=== PATIENT | female | born 1975 | race Two or more races ===

== ENCOUNTER 2016-11-07 09:23 | Outpatient (CLI) | payer BC ==
--- NOTE | 2016-11-07 10:35 | Ultrasound Report ---
THYROID ULTRASOUND: 11/07/2016 CLINICAL INDICATION: Enlarged thyroid on clinical exam. TECHNIQUE: Real-time scanning was performed with electroplating sales representative static images obtained. FINDINGS: The right lobe measures 4.8 x 1.7 x 1.2 cm, and the left lobe measures 4.4 x 1.9 x 1.4 cm. The isthmus measures 3 mm. Both lobes demonstrate homogeneous echotexture. No focal lesion is see n. IMPRESSION: NORMAL THYROID ULTRASOUND. JOB #: [id number] EXT JOB #:[id number]
== END 2016-11-07 09:24 | disposition home or self-care (01) ==
LOC: DI 09:23
PROVIDERS: ATTEND Physician Assistant Medical
DX: E01.0 Iodine-deficiency related diffuse (endemic) goiter (principal)
CPT/HCPCS: 76536

== ENCOUNTER 2017-08-30 08:00 | Outpatient (CLI) | payer BC ==
[2017-08-30 13:14] LABS: BASOPHILS % (AUTO) 0.4 %; EOSINOPHILS # (AUTO) 0.2 10^3/uL (0.0-0.7); EOSINOPHILS % (AUTO) 2.4 %; HGB - HEMOGLOBIN 13.3 g/dL (12.0-16.0); LYMPHOCYTES # (AUTO) 1.8 10^3/uL (1.5-3.5); LYMPHOCYTES % (AUTO) 22.5 %; MEAN CORPUSCULAR HEMOGLOBIN 26.9 pg (27.0-31.0); MEAN CORPUSCULAR HGB CONC 33.3 g/dL (32.0-36.0); MEAN CORPUSCULAR VOLUME 80.8 fL (81.0-99.0); MONOCYTES # (AUTO) 0.6 10^3/uL (0.0-1.0); MONOCYTES % (AUTO) 7.4 %; NEUTROPHILS # (AUTO) 5.3 10^3/uL (1.5-6.6); NEUTROPHILS % (AUTO) 67.3 %; PLT - PLATELET COUNT 242 10^3/uL (130-450); RED BLOOD COUNT 4.96 10^6/uL (4.20-5.40); RED CELL DISTRIBUTION WIDTH 13.9 % (12.0-15.0); WHITE BLOOD COUNT 7.9 x10^3/uL (4.8-10.8)
[2017-08-30 13:30] LABS: ALBUMIN 4.3 g/dL (3.2-5.5); ALBUMIN/GLOBULIN RATIO 1.3 (1.0-2.2); ALKALINE PHOSPHATASE 51 IU/L (42-121); ALT ALANINE AMINOTRANSFERASE 20 IU/L (10-60); AST ASPARTATE AMINOTRANSFERASE 18 IU/L (10-42); BILIRUBIN,TOTAL 0.8 mg/dL (0.2-1.0); BUN - BLOOD UREA NITROGEN 16 mg/dL (6-20); CALCIUM 8.9 mg/dL (8.5-10.3); CARBON DIOXIDE - CO2 26 mmol/L (21-32); CHLORIDE 105 mmol/L (101-111); CHOL/HDL RATIO 4.3 (<4.4); CHOLESTEROL 218 mg/dL; CREATININE 0.6 mg/dL (0.4-1.0); GFR - MDRD 109 (>89); GLUCOSE 100 mg/dL (70-100); HDL CHOLESTEROL 51 mg/dL; LDL CHOLESTEROL,CALCULATED 146 mg/dL; LDL/HDL RATIO 2.9 (<4.4); SODIUM 137 mmol/L (135-145); TOTAL PROTEIN 7.5 g/dL (6.7-8.2); VLDL CHOLESTEROL 21 mg/dL
== END 2017-08-30 08:01 | disposition home or self-care (01) ==
LOC: LAB.WCP 08:00
PROVIDERS: ATTEND Family Medicine
DX: I10 Essential (primary) hypertension (principal); Z00.00 Encounter for general adult medical examination without abnormal findings
CPT/HCPCS: 36415; 80053; 80061; 83721; 84443; 85025

== ENCOUNTER 2017-09-05 15:30 | Outpatient (CLI) | payer BC ==
[2017-09-05 19:06] LABS: HB2 TOTAL 15.5 g/dL; HEMOGLOBIN A1C 0.57 g/dL; HEMOGLOBIN A1C % 5.5 % (4.6-6.2)
== END 2017-09-05 15:31 | disposition home or self-care (01) ==
LOC: LAB.WCP 15:30
PROVIDERS: ATTEND Physician Assistant
DX: Z00.00 Encounter for general adult medical examination without abnormal findings (principal)
CPT/HCPCS: 36415; 83036

== ENCOUNTER 2017-12-31 10:36 | Outpatient (CLI) | payer BC | END 2017-12-31 10:37 | disposition home or self-care (01) | LOC: SC 10:36 | PROVIDERS: ATTEND Internal Medicine Pulmonary Disease | DX: G47.10 Hypersomnia, unspecified (principal); R51 Headache; R06.83 Snoring; G47.8 Other sleep disorders | CPT/HCPCS: 99203; 99212 ==

== ENCOUNTER 2018-10-24 14:11 | Outpatient (CLI) | payer BC | END 2018-10-24 14:12 | disposition home or self-care (01) | LOC: LAB.WCP 14:11 | PROVIDERS: ATTEND Family Medicine | DX: L40.9 Psoriasis, unspecified (principal); M25.521 Pain in right elbow | CPT/HCPCS: 36415; 85651; 86140 ==